=== PATIENT | female | born 2000 | race African-American/Black ===

== ENCOUNTER 2021-09-24 01:20 | Inpatient (IN) ==
[2021-09-24] MEDS ORDERED: BUTORPHANOL 2 MG/ML VIAL IV PRN (01:23)
[2021-09-24] MEDS ORDERED: MEPERIDINE 50 MG/1 ML VIAL IV PRN (01:23)
[2021-09-24] MEDS ORDERED: ONDANSETRON 4 MG/2 ML VIAL IV PRN (01:23)
[2021-09-24] MEDS ORDERED: OXYTOCIN/LR 20 UNIT/1,000 ML BAG IV SCH (01:30)
[2021-09-24] MEDS ORDERED: ePHEDrine 50 MG/ML VIAL IV PRN (01:36)
[2021-09-24] MEDS ORDERED: NALOXONE 0.4 MG/ML VIAL IV PRN (01:36)
[2021-09-24] MEDS ORDERED: diphenhydrAMINE 50 MG/1 ML VIAL IV PRN ×2 (01:36)
[2021-09-24] MEDS ORDERED: CITRIC ACID/SODIUM CITRATE 30 ML UDCUP PO ONE (01:36)
[2021-09-24] MEDS ORDERED: hydrOXYzine HCL 25 MG/1 ML VIAL IM PRN (01:36)
[2021-09-24] MEDS ORDERED: FAMOTIDINE 20 MG/2 ML VIAL IV ONE (01:36)
[2021-09-24] MEDS ORDERED: PROMETHAZINE 25 MG/1 ML VIAL IM ONE (01:36)
[2021-09-24] MEDS: LACTATED RINGERS 1,000 ML IV SCH ×2 (01:50→03:12)
[2021-09-24 01:52] LABS: Basophils % 0.3 % (0.0-0.8); Eosinophils % 0.3 % (0.00-10.9); Hematocrit 38.2 VOL% (35.7-47.0); Hemoglobin 12.9 GM/DL (12.0-16.0); Immature Granulocytes % 0.8 %; Immature Granulocytes Absolute 0.08 #; Lymphocytes # 2.6 10*3/uL (1.4-4.0); Lymphocytes % 26.8 % (21.3-54.2); Mean Corpuscular HGB Conc 33.8 GM/DL (32-36); Mean Corpuscular Volume 87.6 FL (87-102); Mean Platelet Volume 10.8 FL (9.6-12.0); Monocytes % 5.9 % (1.7-12.7); Neutrophils % 65.9 % (38.7-73.9); Platelet Count 341 T/CUMM (130-400); Red Blood Count 4.36 MC/CUMM (3.8-5.5); Red Cell Distribution Width 12.6 % (9.3-17.3); White Blood Count 9.5 T/CUMM (4-12)
[2021-09-24] MEDS ORDERED: fentaNYL 2 MCG/ROPIV 0.2% EPID 100 ML EPIDURAL SCH (02:00)
[2021-09-24 02:44] LABS: Hypochromia Slight; Lymphocytes 23 % (20-55); Microcytosis Slight; Platelet Estimate Adequate; Segmented Neutrophils 67 % (50-85); Total Cells Counted 100
[2021-09-24] MEDS ORDERED: OXYTOCIN/LR 30 UNIT/1,000 ML BAG IV ONE (03:10)
[2021-09-24 03:19] LABS: Bilirubin,Urine Negative (Negative); Blood, Urine Negative (Negative); Glucose,Urine (UA) Negative (Negative); Ketones,Urine Trace mg/dL (Negative); Mucus,Urine Occasional /LPF (Occasional); Nitrite,Urine Negative (Negative); Protein,Urine Negative (Negative); RBC,Urine <1 /HPF (0-4); Urine Appearance Clear (Clear); Urine Color Yellow (Yellow); Urine Urobilinogen 0.2 eU/dL (<2.0)
[2021-09-24] MEDS ORDERED: SODIUM CHLORIDE 0.9% 0 ML IV ONE (05:09)
[2021-09-24] MEDS ORDERED: miSOPROStoL 200 MCG TABLET ONE (05:09)
[2021-09-24] MEDS ORDERED: TRANEXAMIC ACID 1,000 MG/10 ML VIAL ONE (05:09)
[2021-09-24] MEDS ORDERED: OXYTOCIN/LR 20 UNIT/1,000 ML BAG IV ONE ×2 (05:10→08:42)
[2021-09-24] MEDS ORDERED: METHYLERGONOVINE 0.2 MG/1 ML AMP ONE (05:10)
[2021-09-24] MEDS ORDERED: CARBOPROST TROMETHAMINE 250 MCG/ML AMP IM ONE (05:10)
[2021-09-24 06:01] LABS: Cord Venous Blood HCO3 23.2 MMOL/L; Cord Venous Blood PCO2 43.9 MMHG; Cord Venous Blood PO2 36.3
[2021-09-24 06:10] LABS: RPR Confirm - Less than 1 yr REACTIVE (Nonreactive)
[2021-09-24] MEDS ORDERED: BICILLIN LA 2,400,000 UNIT/4 ML SYRINGE IM STA (06:38)
[2021-09-24] MEDS ORDERED: BENZOCAINE 20%/MENTHOL 0.5% SPRAY 56 GM CAN TOP PRN (08:42)
[2021-09-24] MEDS ORDERED: BISACODYL 10 MG SUPP RECTAL PRN (08:42)
[2021-09-24] MEDS ORDERED: ACETAMINOPHEN 325 MG TABLET PO PRN (08:42)
[2021-09-24] MEDS ORDERED: HYDROCORTISONE 2.5% RECTAL CREAM 30 GM TUBE TOP PRN (08:42)
[2021-09-24] MEDS ORDERED: LANOLIN 50% CREAM 0.3 OZ TUBE TOP PRN (08:42)
[2021-09-24] MEDS ORDERED: DIPH/TET/ACEL PERT BOOSTER VACCINE 0.5 ML VIAL IM ONE (08:42)
[2021-09-24] MEDS ORDERED: RHO(D) IMMUNE GLOBULIN 300 MCG SYRINGE IM ONE (08:42)
[2021-09-24] MEDS ORDERED: WITCH HAZEL PADS 100/JAR TOP PRN (08:42)
[2021-09-24] MEDS ORDERED: MEASLES/MUMPS/RUBELLA VACCINE 0.5 ML VIAL SUBCUT ONE (08:42)
[2021-09-24] MEDS ORDERED: oxyCODONE/ACETAMINOPHEN 5-325 MG TABLET PO PRN ×2 (08:42)
[2021-09-24 09:15] LABS: Barbiturates Screen,Urine Negative (Negative); Benzodiazepines Screen,Urine Negative (Negative); Cannabinoid Screen,Urine Positive (Negative); Opiate Screen,Urine Positive (Negative); Phencyclidine Screen,Urine Negative (Negative)
[2021-09-24] MEDS: DOCUSATE SODIUM 100 MG CAPSULE PO SCH ×2 (09:16→22:31)
[2021-09-24] MEDS: IBUPROFEN 800 MG TABLET PO PRN (09:16)
[2021-09-25] MEDS: IBUPROFEN 800 MG TABLET PO PRN ×2 (04:08→18:18)
[2021-09-25 05:37] LABS: Basophils % 0.3 % (0.0-0.8); Eosinophils # 0.1 10*3/uL (0.0-0.87); Eosinophils % 0.5 % (0.00-10.9); Hematocrit 36.6 VOL% (35.7-47.0); Hemoglobin 12.2 GM/DL (12.0-16.0); Immature Granulocytes % 0.9 %; Immature Granulocytes Absolute 0.12 #; Lymphocytes # 2.3 10*3/uL (1.4-4.0); Lymphocytes % 17.7 % (21.3-54.2); Mean Corpuscular HGB Conc 33.3 GM/DL (32-36); Mean Corpuscular Volume 88.6 FL (87-102); Mean Platelet Volume 11.2 FL (9.6-12.0); Monocytes % 6.5 % (1.7-12.7); Neutrophils % 74.1 % (38.7-73.9); Platelet Count 285 T/CUMM (130-400); Red Blood Count 4.13 MC/CUMM (3.8-5.5); Red Cell Distribution Width 12.6 % (9.3-17.3); White Blood Count 13.2 T/CUMM (4-12)
[2021-09-25] MEDS ORDERED: ENOXAPARIN 30 MG/0.3 ML SYRINGE SUBCUT SCH (09:00)
[2021-09-25] MEDS: DOCUSATE SODIUM 100 MG CAPSULE PO SCH ×2 (10:08→23:16)
[2021-09-25] MEDS: guaiFENesin 200 MG/10 ML UDCUP PO PRN (12:01)
[2021-09-25] MEDS: ENOXAPARIN 40 MG/0.4 ML SYRINGE SUBCUT SCH (18:18)
[2021-09-26] MEDS: guaiFENesin 200 MG/10 ML UDCUP PO PRN ×2 (00:03→08:59)
[2021-09-26] MEDS: IBUPROFEN 800 MG TABLET PO PRN ×2 (01:38→09:00)
[2021-09-26 07:14] VITALS: BP 101/64
[2021-09-26] MEDS: DOCUSATE SODIUM 100 MG CAPSULE PO SCH (08:58)
[2021-09-26] MEDS: ENOXAPARIN 40 MG/0.4 ML SYRINGE SUBCUT SCH (11:34)
== END 2021-09-26 14:00 | disposition home or self-care (01) | DRG 560 ==
LOC: N.LD 01:20 → N.OB 08:37
PROVIDERS: ADMIT Obstetrics & Gynecology; ATTEND Obstetrics & Gynecology